=== PATIENT | female | born 1955 | race African-American/Black ===

== ENCOUNTER 2017-03-11 15:20 | Outpatient (CLI) ==
[2012-12-16 08:42] VITALS: TEMP 98.2
[2016-04-15 11:31] VITALS: BMI 18.3
== END 2017-03-11 15:21 | disposition short-term general hospital (02) ==
LOC: AMBL 15:20
PROVIDERS: ATTEND Internal Medicine
DX: R06.02 Shortness of breath (principal); R00.0 Tachycardia, unspecified; R09.89 Other specified symptoms and signs involving the circulatory and respiratory systems; C34.90 Malignant neoplasm of unspecified part of unspecified bronchus or lung

== ENCOUNTER 2017-05-28 07:41 | Outpatient (CLI) ==
[2012-12-16 08:42] VITALS: TEMP 98.2
[2016-04-15 11:31] VITALS: BMI 18.3
== END 2017-05-28 07:42 | disposition short-term general hospital (02) ==
LOC: AMBL 07:41
PROVIDERS: ATTEND Internal Medicine
DX: R40.4 Transient alteration of awareness (principal); E11.649 Type 2 diabetes mellitus with hypoglycemia without coma; R40.2421 Glasgow coma scale score 9-12, in the field [EMT or ambulance]; I10 Essential (primary) hypertension; C34.90 Malignant neoplasm of unspecified part of unspecified bronchus or lung; C79.51 Secondary malignant neoplasm of bone; Z99.81 Dependence on supplemental oxygen

== ENCOUNTER 2017-11-26 15:35 | Outpatient (POV) ==
[2012-12-16 08:42] VITALS: TEMP 98.2
[2016-04-15 11:31] VITALS: BMI 18.3
== END 2017-11-26 17:00 ==
LOC: OUTPT 15:35
PROVIDERS: ATTEND Otolaryngology
DX: H69.90 Unspecified Eustachian tube disorder, unspecified ear (principal)

== ENCOUNTER 2018-02-07 11:28 | Outpatient (CLI) ==
[2012-12-16 08:42] VITALS: TEMP 98.2
[2016-04-15 11:31] VITALS: BMI 18.3
== END 2018-02-10 11:40 | disposition short-term general hospital (02) ==
LOC: AMBL 11:28
PROVIDERS: ATTEND Internal Medicine
DX: R40.20 Unspecified coma (principal); C34.90 Malignant neoplasm of unspecified part of unspecified bronchus or lung; C71.9 Malignant neoplasm of brain, unspecified; C41.2 Malignant neoplasm of vertebral column; R41.0 Disorientation, unspecified; R63.0 Anorexia; R53.1 Weakness; E11.9 Type 2 diabetes mellitus without complications; Z99.81 Dependence on supplemental oxygen

== ENCOUNTER 2018-03-05 14:33 | Outpatient (CLI) ==
[2012-12-16 08:42] VITALS: TEMP 98.2
[2016-04-15 11:31] VITALS: BMI 18.3
== END 2018-03-05 14:34 | disposition home or self-care (01) ==
LOC: AMBL 14:33
PROVIDERS: ATTEND Internal Medicine
DX: R53.83 Other fatigue (principal); R53.1 Weakness; R06.2 Wheezing; E11.9 Type 2 diabetes mellitus without complications; J44.9 Chronic obstructive pulmonary disease, unspecified; C80.1 Malignant (primary) neoplasm, unspecified; C79.9 Secondary malignant neoplasm of unspecified site; Z86.73 Personal history of transient ischemic attack (TIA), and cerebral infarction without residual deficits